=== PATIENT | male | born 1945 | race Caucasian/White ===

== ENCOUNTER → 2017-12-11 | Emergency (ER) | payer MEDICARE ==
[~2017-12-11] VITALS: Ht 190.5 cm; Wt 102.2 kg
[2017-12-11 08:05] VITALS: BP 127/73
[2017-12-11 08:07] LABS: CLARITY,URINE CLEAR (Clear); GLUCOSE, URINE NEGATIVE (Neg); KETONES,URINE NEGATIVE (Neg); LEUKOCYTE ESTERASE ,URINE NEGATIVE (Neg); NITRITES, URINE NEGATIVE (Neg); OCCULT BLOOD,URINE LARGE (Neg); PROTEIN,URINE NEGATIVE (Neg); UROBILINOGEN,URINE 0.2 E.U/dL (0.2-1.0)
[2017-12-11 08:12] LABS: COLOR,URINE PINK (Yellow); UA COLLECTION TYPE FOLEY CATH
[2017-12-11 08:13] LABS: BACTERIA,URINE NONE SEEN /HPF (Neg); MUCUS STRANDS FEW /LPF (Neg); RBC,URINE 20-50 /HPF (0-2); SQUAMOUS EPITHELIAL CELL,UR FEW /LPF (FEW); WBC,URINE 0-4 /HPF (0-4)
== END | disposition home or self-care (01) ==
LOC: ER 06:40
DX: R33.9 Retention of urine, unspecified (principal); N40.0 Benign prostatic hyperplasia without lower urinary tract symptoms
CPT/HCPCS: 51702; 81001; 99284; A4315

== ENCOUNTER 2017-12-14 14:49 | Emergency (ER) | payer MEDICARE ==
[~2017-12-14] VITALS: Ht 190.5 cm; Wt 102.3 kg
[2017-12-14 15:08] VITALS: BP 152/66
== END 2017-12-14 15:35 | disposition home or self-care (01) ==
LOC: ER 14:51
DX: T83.018A Breakdown (mechanical) of other urinary catheter, initial encounter (principal)
CPT/HCPCS: 99281